=== PATIENT | male | born 1985 | race African-American/Black ===

== ENCOUNTER 2018-01-31 05:02 | Emergency (ER) | payer OTHER ==
[~2018-01-31] VITALS: Ht 188 cm; Wt 94.3 kg
[2018-01-31 05:37] LABS: ABSOLUTE NEUTROPHILS 6.3 thou/uL (1.4-8.2); EOSINOPHILS 0.3 % (0.0-3.0); HEMATOCRIT 50.9 % (42.0-52.0); HEMOGLOBIN 17.5 gm/dL (14.0-18.0); LYMPHOCYTES 23.4 % (24.0-44.0); MCH 30.1 pg (26.0-34.0); MCHC 34.3 g/dL (28.0-37.0); MCV 87.7 fL (80.0-100.0); MONOCYTES 5.3 % (1.0-8.0); PLATELET COUNT 351 thou/uL (150-400); RDW 15.4 % (10.5-14.5); WBC 8.9 thou/uL (4.0-11.0)
[2018-01-31 05:48] LABS: ANION GAP 10 mmol/L (7-16); BUN 9 mg/dL (7-18); CALCIUM 9.6 mg/dL (8.5-10.1); CHLORIDE 103 mmol/L (98-107); CO2 25 mmol/L (21-32); CREATININE 1.1 mg/dL (0.7-1.3); GLUCOSE 115 mg/dL (74-106); POTASSIUM 3.3 mmol/L (3.5-5.1); SODIUM 138 mmol/L (136-145)
[2018-01-31 05:54] LABS: ALBUMIN 4.5 g/dL (3.4-5.0); DIRECT BILIRUBIN < 0.1 mg/dL (<0.1-0.3); LIPASE 123 U/L (73-393); SGOT 37 U/L (15-37); SGPT 41 U/L (30-65); TOTAL BILIRUBIN 0.3 mg/dL (<0.1-1.0); TOTAL PROTEIN 8.8 g/dL (6.4-8.2)
[2018-01-31] MEDS ORDERED: BENTYL 20 MG TA20 M1 PO (06:37)
[2018-01-31] MEDS ORDERED: ZOFRAN ODT4 MG PO (06:37)
[2018-01-31 06:59] VITALS: BP 130/88
== END 2018-01-31 07:04 | disposition home or self-care (01) ==
LOC: ER 05:02
PROVIDERS: Emergency Medicine
DX: K52.9 Noninfective gastroenteritis and colitis, unspecified (principal); F17.210 Nicotine dependence, cigarettes, uncomplicated